=== PATIENT | male | born 1970 | race Caucasian/White ===

== ENCOUNTER 2021-09-05 09:03 | Emergency (ER) | payer BC ==
--- NOTE | 2021-09-05 09:46 | EDM.PDOC ---
ED HPI GENERAL MEDICAL PROBLEM - General Chief Complaint: General Stated Complaint: TOOTH PAIN Time Seen by Provider: 09/05/21 09:24 Source of Information: Reports: Patient, RN Notes Reviewed History Limitations: Reports: No Limitations - History of Present Illness INITIAL COMMENTS - FREE TEXT/NARRATIVE: Patient is a 50-year-old male presenting to the emergency department with complaints of pain and swelling to right lower jaw for the last 4 days. Reports small fracture of tooth in the right lower jaw. He has an appointment scheduled with his dentist next week, but they recommended he come to the ER to be started on antibiotics to cover for any underlying infection prior to his appointment. He has not been taking any [id number] medications for pain. Feels he may have had chills, however he also just came off quarantine for Covid so he is unsure if this is related to the tooth or his Covid. Denies any vomiting or diarrhea. He has had no documented fevers. Oral/Mouth Pain Score (Numeric/FACES): 4 - Related Data Allergies Allergy/AdvReac Type Severity Reaction Status Date / Time No Known Allergies Allergy Verified 09/05/21 09:20 Home Meds: Home Meds Amoxicillin/Potassium Clav [Augmentin 875-125 Tablet] 1 each PO BID 10 Days #20 tab 09/05/21 [Rx] Citalopram [Citalopram HBr] 10 mg PO DAILY 09/05/21 [History] lisinopriL [Lisinopril] 20 mg PO DAILY 09/05/21 [History] Past Medical History Cardiovascular History: Reports: Hypertension Psychiatric History: Reports: Anxiety Other Dermatologic History: perirectal abcess - Infectious Disease History Infectious Disease History: Reports: Novel Coronavirus Social & Family History - Tobacco Use Tobacco Use Status *Q: Current Every Day Tobacco User Years of Tobacco use: 30 Packs/Tins Daily: 0.5 Used Tobacco, but Quit: No - Caffeine Use Caffeine Use: Reports: Coffee - Recreational Drug Use Recreational Drug Use: No ED ROS GENERAL - Review of Systems Review Of Systems: Comprehensive ROS is negative, except as noted in HPI. ED EXAM, GENERAL - Physical Exam Exam: See Below Exam Limited By: No Limitations General Appearance: Alert, WD/WN, No Apparent Distress Throat/Mouth: Other (Dental gina with small tear fracture of tooth 2) Respiratory/Chest: No Respiratory Distress, Lungs Clear, Normal Breath Sounds, No Accessory Muscle Use, Chest Non-Tender Cardiovascular: Normal Peripheral Pulses, Regular Rate, Rhythm, No Edema, No Gallop, No JVD, No Murmur, No Rub Neurological: Alert, Oriented, CN II-XII Intact, Normal Cognition, Normal Gait, Normal Reflexes, No Motor/Sensory Deficits Psychiatric: Normal Affect, Normal Mood Skin Exam: Warm, Dry, Intact, Normal Color, No Rash Course - Vital Signs Last Recorded V/S: Last Vital Signs Temp 96.5 F L 09/05/21 09:16 Pulse 94 09/05/21 09:16 Resp 20 09/05/21 09:16 BP 148/82 H 09/05/21 09:16 Pulse Ox 97 09/05/21 09:16 Departure - Departure Time of Disposition: 09:44 Disposition: Home, Self-Care 01 Condition: Good Clinical Impression: Infected dental caries - Discharge Information *PRESCRIPTION DRUG MONITORING PROGRAM REVIEWED*: No *COPY OF PRESCRIPTION DRUG MONITORING REPORT IN PATIENT ANA: No Prescriptions: Amoxicillin/Potassium Clav [Augmentin 875-125 Tablet] 1 each PO BID 10 Days #20 tab Instructions: Dental Caries, Adult Referrals: Prabhjot Nelson MD [Primary Care Provider] - Forms: ED Department Discharge Additional Instructions: Take Augmentin as prescribed. Use Tylenol and ibuprofen as needed for discomfort. Keep appointment as scheduled with dentist next week. Return to ER for any new or worsening symptoms of concern. Sepsis Event Note (ED) - Evaluation Sepsis Screening Result: No Definite Risk - Focused Exam Vital Signs: Vital Signs Temp Pulse Resp BP Pulse Ox 09/05/21 09:16 96.5 F L 94 20 148/82 H 97
== END 2021-09-05 09:55 | disposition home or self-care (01) ==
LOC: JD.ED 09:03
DX: K04.7 Periapical abscess without sinus (principal); K02.9 Dental caries, unspecified; I10 Essential (primary) hypertension; Z72.0 Tobacco use; Z86.16 Personal history of COVID-19; Z79.899 Other long term (current) drug therapy
CPT/HCPCS: 99282

== ENCOUNTER 2025-04-28 08:48 | Emergency (ER) | payer BC ==
[2025-04-28] MEDS: Lidocaine 4% Patch TOP STA (11:00)
== END 2025-04-28 11:05 | disposition home or self-care (01) ==
LOC: JD.ED 08:48
DX: K43.9 Ventral hernia without obstruction or gangrene (principal); I10 Essential (primary) hypertension; F17.210 Nicotine dependence, cigarettes, uncomplicated; Z79.899 Other long term (current) drug therapy; Z86.16 Personal history of COVID-19
CPT/HCPCS: 99283; A9270